=== PATIENT | female | born 1990 | race African-American/Black ===

== ENCOUNTER 2016-11-07 10:02 | Emergency (ER) | payer SELFPAY ==
[~2016-11-07 10:02] MED LIST: PRED20 PO
[2016-11-07 10:06] VITALS: BP 134/87; PULSE 90; RESP 15; TEMP 98.2; O2SAT 98
[2016-11-07 11:05] LABS: AUTOMATED NEUTROPHIL # 6.4 TH/MM3 (1.8-7.7); BASOPHIL % 0.3 % (0.0-2.0); EOSINOPHIL # 0.2 TH/MM3 (0-0.4); EOSINOPHIL % 2.3 % (0.0-4.0); HEMATOCRIT 32.7 % (35.0-46.0); HEMO FLAGS DIFF FINAL; LYMPHOCYTE # 2.5 TH/MM3 (1.0-4.8); MEAN CELL VOLUME 64.1 FL (80.0-100.0); MEAN CORPUSCULAR HEMOGLOBIN 19.9 PG (27.0-34.0); MEAN CORPUSCULAR HGB CONC 31.1 % (32.0-36.0); NEUT % 63.4 % (16.0-70.0); PLATELET COUNT 491 TH/MM3 (150-450); RED BLOOD COUNT 5.11 MIL/MM3 (4.00-5.30); RED CELL DISTRIBUTION WIDTH 19.5 % (11.6-17.2); WHITE BLOOD COUNT 10.2 TH/MM3 (4.0-11.0)
[2016-11-07 11:06] LABS: BLOOD, URINE NEG (NEG); GLUCOSE,URINE NEG (NEG); KETONE, URINE NEG (NEG); NITRITE,URINE NEG (NEG); SQUAMOUS EPITHELIAL CELL URINE 1 /hpf (0-5); URINE COLOR LIGHT-YELLOW (YELLW/STRAW)
[2016-11-07 11:07] LABS: COMMENT (UR) CULT NOT INDICATED; CULTURE IF INDICATED CULT NOT INDICATED
[2016-11-07 11:16] LABS: ALT (GPT) 20 U/L (10-53)
[2016-11-07 11:19] LABS: ALKALINE PHOSPHATASE 79 U/L (45-117); TOTAL BILIRUBIN ADULT LESS THAN 0.1 MG/DL (0.2-1.0)
[2016-11-07 11:33] LABS: ANION GAP 6 MEQ/L (5-15); AST (GOT) 12 U/L (15-37); BICARBONATE 27.2 MEQ/L (21.0-32.0); BLOOD UREA NITROGEN 6 MG/DL (7-18); CHLORIDE 107 MEQ/L (98-107); GLOMERULAR FILTRATION RATE 86 ML/MIN (>89); SODIUM (NA) 140 MEQ/L (136-145)
== END 2016-11-07 12:20 | disposition left against medical advice (07) ==
LOC: NED 10:02
DX: M54.9 Dorsalgia, unspecified (principal)
CPT/HCPCS: 80053; 81001; 84703; 85025; 99281